=== PATIENT | female | born 1985 | race Caucasian/White ===

== ENCOUNTER 2020-10-18 13:33 | Emergency (ER) | payer OTHER ==
[2020-10-18] MEDS ORDERED: NAPROSYN500 MG PO (17:48)
[2020-10-18] MEDS ORDERED: CYCLOBENZAPRINE10 MG PO (17:48)
== END 2020-10-18 18:04 | disposition home or self-care (01) ==
LOC: ER1 13:33
DX: S29.012A Strain of muscle and tendon of back wall of thorax, initial encounter (principal); M79.602 Pain in left arm; Z88.8 Allergy status to other drugs, medicaments and biological substances; V43.52XA Car driver injured in collision with other type car in traffic accident, initial encounter; Y92.410 Unspecified street and highway as the place of occurrence of the external cause
CPT/HCPCS: 71046; 72072; 96372; 99283; J1885

== ENCOUNTER 2021-10-28 11:11 | Emergency (ER) | payer BC, OTHER ==
[~2021-10-28 11:11] MED LIST: CYCLOBENZAPRINE10 MG PO; NAPROSYN500 MG PO
[2021-10-29] MEDS ORDERED: ZOFRAN ODT 4 MG4 MG PO (15:06)
[2021-10-29] MEDS ORDERED: PROTONIX40 MG PO (15:41)
[2021-10-29] MEDS ORDERED: DOXYCYCLINE HY100 M2 PO (15:41)
== END 2021-10-28 13:45 | disposition left against medical advice (07) ==
LOC: ER1 11:11
DX: Z53.21 Procedure and treatment not carried out due to patient leaving prior to being seen by health care provider (principal)

== ENCOUNTER 2021-10-29 09:13 | Emergency (ER) | payer BC ==
[~2021-10-29] VITALS: Ht 160 cm; Wt 125.2 kg
[2021-10-29 10:31] LABS: HEMOGLOBIN 14.3 gm/dl (12.3-15.3); RED BLOOD COUNT 5.06 M/UL (4.00-5.10); WHITE BLOOD COUNT 5.1 K/UL (4.5-11.0)
[2021-10-29 10:55] LABS: BUN/CREATININE RATIO 10 (0-10)
[2021-10-29] MEDS ORDERED: ZOFRAN ODT 4 MG4 MG PO (15:06)
[2021-10-29] MEDS ORDERED: PROTONIX40 MG PO (15:41)
[2021-10-29] MEDS ORDERED: DOXYCYCLINE HY100 M2 PO (15:41)
== END 2021-10-29 15:53 | disposition home or self-care (01) ==
LOC: ER1 09:13
PROVIDERS: Physician Assistant
DX: U07.1 COVID-19 (principal); K80.80 Other cholelithiasis without obstruction; R94.5 Abnormal results of liver function studies; R11.2 Nausea with vomiting, unspecified; K21.9 Gastro-esophageal reflux disease without esophagitis; Z79.899 Other long term (current) drug therapy
CPT/HCPCS: 71045; 76705; 80053; 81001; 82550; 82553; 83690; 83874; 84484; 84703; 85025; 93005; 96374; 96375; 99284; C9113; J0696; J2405; U0002

== ENCOUNTER 2021-11-06 09:29 | Emergency (ER) | payer BC ==
[~2021-11-06 09:29] MED LIST changes: +DOXYCYCLINE HY100 M2 PO; +PROTONIX40 MG PO; +ZOFRAN ODT 4 MG4 MG PO
[2021-11-06 10:16] LABS: HEMOGLOBIN 13.7 gm/dl (12.3-15.3); RED BLOOD COUNT 4.7 M/UL (4.00-5.10); WHITE BLOOD COUNT 7.6 K/UL (4.5-11.0)
[2021-11-06 10:34] LABS: BUN/CREATININE RATIO 16 (0-10)
[2021-11-06] MEDS ORDERED: IBUPROFEN600 MG PO (11:27)
[2021-11-06] MEDS ORDERED: ZOFRAN ODT 4 MG4 MG PO (11:27)
== END 2021-11-06 11:45 | disposition home or self-care (01) ==
LOC: ER1 09:29
PROVIDERS: Emergency Medicine
DX: N13.2 Hydronephrosis with renal and ureteral calculous obstruction (principal)
CPT/HCPCS: 80053; 81001; 84703; 85025; 96374; 96375; 99284; J1885; J2405; J7030